=== PATIENT | female | born 1940 | race Caucasian/White ===

== ENCOUNTER 2024-04-19 10:30 | Inpatient (IN) | payer OTHER, MEDICARE ==
[2024-04-19] MEDS: fentaNYL 50 MCG/ML SDV IVPUSH ONE ×4 (10:48→15:04)
[2024-04-19 10:50] LABS: BASOPHILS PERCENT AUTO 0.3 % (0.2-1.2); EOSINOPHILS ABSOLUTE AUTO 0.1 x10^3/uL (0.0-0.5); EOSINOPHILS PERCENT AUTO 0.8 % (0.0-4.0); HEMATOCRIT 45.5 % (33.0-47.0); HEMOGLOBIN 15.6 g/dL (12.0-16.0); IMMATURE GRAN ABSOLUTE AUTO 0.07 x10^3/uL (0.00-0.07); LYMPHOCYTES ABSOLUTE AUTO 0.9 x10^3/uL (1.0-4.8); MEAN CORPUSCULAR HEMOGLOBIN 29.6 pg (26.0-32.0); MEAN CORPUSCULAR HGB CONC 34.3 g/dL (32.0-36.0); MEAN CORPUSCULAR VOLUME 86.3 fL (78.0-93.0); MONOCYTES ABSOLUTE AUTO 0.4 x10^3/uL (0.0-0.8); NEUTROPHILS ABSOLUTE AUTO 5.1 x10^3/uL (1.8-7.7); NEUTROPHILS PERCENT AUTO 77.8 % (50.0-80.0); PLATELET COUNT,PLT 162 x10^3/uL (130-400); RED BLOOD CELL COUNT 5.27 x10^6/uL (4.00-5.50); WHITE BLOOD CELL COUNT,WBC 6.5 x10^3/uL (4.0-10.0)
[2024-04-19 10:59] LABS: BLOOD UREA NITROGEN,BUN 24 mg/dL (7-18); CALCIUM 10.3 mg/dL (8.5-10.1); CARBON DIOXIDE,CO2 28 mmol/L (21-32); CHLORIDE,CL 104 mmol/L (98-107); CREATININE 1.3 mg/dL (0.55-1.02); GLUCOSE RANDOM 135 mg/dL (70-99); POTASSIUM,K 3.4 mmol/L (3.5-5.1); SODIUM,NA 143 mmol/L (136-145)
[2024-04-19 11:06] LABS: ANION GAP 14.4 mmol/L (5-15); ESTIMATED GFR 41 mL/min (>=60)
[2024-04-19] MEDS ORDERED: HYDROmorphone 0.5 MG/0.5 ML Syringe IVPUSH PRN (16:31)
[2024-04-19] MEDS ORDERED: Naloxone 0.4 MG/ML SDV IVPUSH PRN (16:31)
[2024-04-19] MEDS: Acetaminophen 325 MG Tab PO SCH (20:35)
[2024-04-19] MEDS: Oxybutynin 5 MG Tab PO SCH (20:36)
[2024-04-19] MEDS: Calcium Carbonate/Vitamin D3 1250 MG-5 MCG Tab PO SCH (20:36)
[2024-04-19] MEDS: atorvaSTATin 10 MG Tab PO SCH (20:36)
[2024-04-19] MEDS: amLODIPine 10 MG Tab PO SCH (20:37)
[2024-04-19] MEDS: oxyCODONE 5 MG Tab PO PRN (21:47)
[2024-04-19] MEDS: Ondansetron 4 MG Tab.DIS PO PRN (23:21)
[2024-04-20 07:00] LABS: HEMATOCRIT 38.1 % (33.0-47.0); HEMOGLOBIN 13.1 g/dL (12.0-16.0); MEAN CORPUSCULAR HEMOGLOBIN 29.8 pg (26.0-32.0); MEAN CORPUSCULAR HGB CONC 34.4 g/dL (32.0-36.0); MEAN CORPUSCULAR VOLUME 86.8 fL (78.0-93.0); RED BLOOD CELL COUNT 4.39 x10^6/uL (4.00-5.50); WHITE BLOOD CELL COUNT,WBC 9.1 x10^3/uL (4.0-10.0)
[2024-04-20 07:02] LABS: CREATININE 1.2 mg/dL (0.55-1.02); EST CRCL DRUG DOSING (CG) 30.41 mL/min; MAGNESIUM 1.7 mg/dL (1.8-2.4); POTASSIUM,K 3.5 mmol/L (3.5-5.1)
[2024-04-20 07:13] LABS: ANION GAP 13.5 mmol/L (5-15)
[2024-04-20] MEDS: Losartan 25 MG Tab PO SCH (09:44)
[2024-04-20] MEDS: Sodium Chloride 0.9% 10 ML Syringe FLUSH PRN (20:26)
[2024-04-21 07:00] LABS: HEMATOCRIT 37.2 % (33.0-47.0); HEMOGLOBIN 12.5 g/dL (12.0-16.0); MEAN CORPUSCULAR HEMOGLOBIN 29.6 pg (26.0-32.0); MEAN CORPUSCULAR HGB CONC 33.6 g/dL (32.0-36.0); MEAN CORPUSCULAR VOLUME 87.9 fL (78.0-93.0); RED BLOOD CELL COUNT 4.23 x10^6/uL (4.00-5.50); WHITE BLOOD CELL COUNT,WBC 8.2 x10^3/uL (4.0-10.0)
[2024-04-21 07:13] LABS: CALCIUM 8.9 mg/dL (8.5-10.1); CREATININE 1.1 mg/dL (0.55-1.02); EST CRCL DRUG DOSING (CG) 33.18 mL/min; POTASSIUM,K 3.7 mmol/L (3.5-5.1)
[2024-04-21 07:17] LABS: ANION GAP 11.7 mmol/L (5-15)
[2024-04-21] MEDS: Azithromycin 250 MG Tab PO SCH (16:15)
[2024-04-21] MEDS: Amoxicillin/Clavulanate K 875-125 MG Tab PO SCH (20:05)
[2024-04-22 07:03] LABS: HEMATOCRIT 34.1 % (33.0-47.0); HEMOGLOBIN 11.5 g/dL (12.0-16.0); MEAN CORPUSCULAR HEMOGLOBIN 29.9 pg (26.0-32.0); MEAN CORPUSCULAR HGB CONC 33.7 g/dL (32.0-36.0); MEAN CORPUSCULAR VOLUME 88.8 fL (78.0-93.0); RED BLOOD CELL COUNT 3.84 x10^6/uL (4.00-5.50); WHITE BLOOD CELL COUNT,WBC 6.5 x10^3/uL (4.0-10.0)
[2024-04-22 07:08] LABS: CALCIUM 9.3 mg/dL (8.5-10.1); CREATININE 1.3 mg/dL (0.55-1.02); EST CRCL DRUG DOSING (CG) 28.07 mL/min; POTASSIUM,K 3.9 mmol/L (3.5-5.1)
[2024-04-22 07:10] LABS: ANION GAP 11.9 mmol/L (5-15)
[2024-04-22] MEDS: Iopamidol 755 Mg/ML 100 ML Bottle IVPUSH ONE (10:49)
[2024-04-23] MEDS ORDERED: Albuterol/Ipratropium 3.0-0.5 MG/3 ML Neb Soln NEB PRN (09:03)
[2024-04-24] MEDS: Alendronate 70 MG Tab PO SCH (06:16)
[2024-04-24] MEDS: Polyethylene Glycol 3350 Powder 17 GM Packet PO PRN (11:01)
== END 2024-04-24 15:22 | disposition swing bed (61) | DRG 551 ==
LOC: VM.ED 10:30 → VM.MS 15:30
PROVIDERS: ADMIT Family Medicine; ATTEND Family Medicine
DX: S32.10XA Unspecified fracture of sacrum, initial encounter for closed fracture (principal); J18.9 Pneumonia, unspecified organism; S32.592A Other specified fracture of left pubis, initial encounter for closed fracture; W01.0XXA Fall on same level from slipping, tripping and stumbling without subsequent striking against object, initial encounter; I12.9 Hypertensive chronic kidney disease with stage 1 through stage 4 chronic kidney disease, or unspecified chronic kidney disease; N18.30 Chronic kidney disease, stage 3 unspecified; E78.5 Hyperlipidemia, unspecified; M81.0 Age-related osteoporosis without current pathological fracture; E78.00 Pure hypercholesterolemia, unspecified; I73.9 Peripheral vascular disease, unspecified; I10 Essential (primary) hypertension; Z96.641 Presence of right artificial hip joint; N94.89 Other specified conditions associated with female genital organs and menstrual cycle; R53.81 Other malaise; Y93.H9 Activity, other involving exterior property and land maintenance, building and construction; Y92.511 Restaurant or cafe as the place of occurrence of the external cause; Y99.8 Other external cause status; Z79.899 Other long term (current) drug therapy; Z79.02 Long term (current) use of antithrombotics/antiplatelets; Z87.891 Personal history of nicotine dependence
CPT/HCPCS: 36415; 71045; 71275; 72170; 72192; 80048; 83735; 85025; 85027; 96374; 96376; 97110-GP; 97162-GP; 97165-GO; 97530-GP; 97535-GO; 99284; 99285-25; A9270-GY; J3010; Q9967

== ENCOUNTER 2024-04-24 10:29 | Inpatient (IN) | payer OTHER, MEDICARE ==
[2024-04-24] MEDS ORDERED: Ondansetron 4 MG Tab.DIS PO PRN (14:15)
[2024-04-24] MEDS ORDERED: Albuterol/Ipratropium 3.0-0.5 MG/3 ML Neb Soln NEB PRN (14:15)
[2024-04-24] MEDS ORDERED: Sodium Chloride 0.9% 10 ML Syringe FLUSH PRN ×2 (14:15)
[2024-04-24] MEDS ORDERED: Naloxone 0.4 MG/ML SDV IVPUSH PRN (14:15)
[2024-04-24] MEDS ORDERED: Alendronate 70 MG Tab PO SCH (16:29)
[2024-04-24] MEDS: diphenhydrAMINE 25 MG Cap PO PRN (16:30)
[2024-04-24] MEDS: oxyCODONE 5 MG Tab PO PRN (19:43)
[2024-04-24] MEDS: amLODIPine 10 MG Tab PO SCH (20:11)
[2024-04-24] MEDS: Acetaminophen 325 MG Tab PO SCH (20:15)
[2024-04-24] MEDS: Calcium Carbonate/Vitamin D3 1250 MG-5 MCG Tab PO SCH (20:15)
[2024-04-24] MEDS: atorvaSTATin 10 MG Tab PO SCH (20:16)
[2024-04-24] MEDS: Oxybutynin 5 MG Tab PO SCH (20:16)
[2024-04-24] MEDS ORDERED: atorvaSTATin 10 MG Tab PO SCH (21:00)
[2024-04-24] MEDS ORDERED: Amoxicillin/Clavulanate K 875-125 MG Tab PO SCH (21:00)
[2024-04-24] MEDS ORDERED: Oxybutynin 5 MG Tab PO SCH (21:00)
[2024-04-24] MEDS ORDERED: Non-Formulary Medication 1 Each (Calcium Carbonate/Vitamin D3 [Caltrate 600 Plus D3 Tablet PO SCH (21:00)
[2024-04-24] MEDS ORDERED: amLODIPine 10 MG Tab PO SCH (21:00)
[2024-04-25 06:52] LABS: HEMATOCRIT 31.8 % (33.0-47.0); HEMOGLOBIN 10.6 g/dL (12.0-16.0); MEAN CORPUSCULAR HEMOGLOBIN 29.4 pg (26.0-32.0); MEAN CORPUSCULAR HGB CONC 33.3 g/dL (32.0-36.0); MEAN CORPUSCULAR VOLUME 88.3 fL (78.0-93.0); RED BLOOD CELL COUNT 3.6 x10^6/uL (4.00-5.50); WHITE BLOOD CELL COUNT,WBC 5.7 x10^3/uL (4.0-10.0)
[2024-04-25] MEDS: Losartan 25 MG Tab PO SCH (08:06)
[2024-04-25] MEDS: Multivitamin Tab PO SCH (08:08)
[2024-04-25] MEDS: Azithromycin 250 MG Tab PO SCH (08:09)
[2024-04-25] MEDS ORDERED: Losartan 25 MG Tab PO SCH (09:00)
[2024-04-25] MEDS: diphenhydrAMINE 25 MG Cap PO PRN (13:37)
[2024-04-26] MEDS: Losartan 50 MG Tab PO SCH (08:05)
[2024-04-26] MEDS ORDERED: Triamcinolone Acetonide 0.1% Crm 454 GM Jar TOP PRN (18:22)
[2024-04-26] MEDS: Polyethylene Glycol 3350 Powder 17 GM Packet PO PRN (21:00)
[2024-04-26] MEDS: Triamcinolone Acetonide 0.1% Crm 15 GM Tube TOP PRN (21:03)
[2024-04-28] MEDS: oxyCODONE 5 MG Tab PO SCH (05:22)
[2024-05-01] MEDS: Alendronate 70 MG Tab PO SCH (07:17)
[2024-05-06] MEDS: Sennosides 8.6 MG Tab PO SCH (08:40)
[2024-05-06] MEDS: Lactulose Soln 10 GM/15 ML 30 ML UD Cup PO SCH (08:41)
== END 2024-05-20 10:35 | disposition home or self-care (01) | DRG 561 ==
LOC: VM.MS 15:34
PROVIDERS: ADMIT Nurse Practitioner Family; ATTEND Family Medicine
DX: S32.512D Fracture of superior rim of left pubis, subsequent encounter for fracture with routine healing (principal); S32.592D Other specified fracture of left pubis, subsequent encounter for fracture with routine healing; S32.10XD Unspecified fracture of sacrum, subsequent encounter for fracture with routine healing; R53.81 Other malaise; N18.30 Chronic kidney disease, stage 3 unspecified; I12.9 Hypertensive chronic kidney disease with stage 1 through stage 4 chronic kidney disease, or unspecified chronic kidney disease; M81.0 Age-related osteoporosis without current pathological fracture; W19.XXXD Unspecified fall, subsequent encounter; E78.00 Pure hypercholesterolemia, unspecified; Z96.641 Presence of right artificial hip joint; Z87.891 Personal history of nicotine dependence
CPT/HCPCS: 36415; 85027; 97110-GO; 97110-GP; 97116-GP; 97164-GP; 97530-GO; 97530-GP; 97535-GO; A9270-GY